=== PATIENT | female | born 1980 | race Caucasian/White ===

== ENCOUNTER → 2018-10-12 | Outpatient (CLI) | payer OTHER | LOC: EMCIMAGING 07:07 | PROVIDERS: ATTEND Nurse Practitioner | DX: Z12.31 Encounter for screening mammogram for malignant neoplasm of breast (principal) | CPT/HCPCS: 77067-PN ==

== ENCOUNTER 2018-10-29 09:20 | Emergency (ER) | payer OTHER | END 2018-10-29 09:54 | disposition home or self-care (01) | LOC: CED 09:20 ==